=== PATIENT | female | born 1985 | race Caucasian/White ===

== ENCOUNTER 2022-10-29 07:49 | Emergency (ER) | payer MEDICAID ==
[~2022-10-29] VITALS: Ht 160 cm; Wt 62.6 kg
--- NOTE | 2022-10-29 08:05 | NUR ---
pain on urination, dysuria that started last night.
--- NOTE | 2022-10-29 08:18 | NUR ---
PLACED PATIENT ON BED ,CONNECT TO MONITOR,OFFERED BLANKET TO PATIENT
--- NOTE | 2022-10-29 08:23 | NUR ---
urine collected and sent to lab.
[2022-10-29 08:44] LABS: BILIRUBIN,URINE 2+ (NEGATIVE); COLOR,URINE AMBER (YELLOW); LEUKOCYTE ESTERASE ,URINE 2+ (NEGATIVE); NITRITE, URINE POSITIVE (NEGATIVE); PH,URINE 6.5 (5.0-8.0); PROTEIN,URINE 3+ mg/dl (NEGATIVE); UGLUCOSE TRACE mg/dL (NEGATIVE)
[2022-10-29 09:07] LABS: RBC,URINE TOO NUMEROUS TO COUN /HPF (0-2)
[2022-10-29 09:08] LABS: BACTERIA,URINE Moderate /HPF (None Seen); WBC,URINE 21-50 /HPF (0-3)
[2022-10-29 09:09] LABS: SQUAMOUS EPITHELIAL CELL,UR Many /HPF (None Seen)
--- NOTE | 2022-10-29 09:15 | NUR ---
DOCTOR VALENTIN AT BED SIDE.
[2022-10-29] MEDS ORDERED: NITR100C6 PO (09:28)
--- NOTE | 2022-10-29 09:44 | NUR ---
DOCTOR ADVISED DISCHARGE.PATIENT NEEDS PAIN MEDICATION .INFORMED TO ON DUTY DOCTOR.
[2022-10-29] MEDS ORDERED: IBUP-1955 PO (09:46)
[2022-10-29] MEDS ORDERED: PHEN-704 PO (09:46)
[2022-10-29] MEDS ORDERED: KETOROLAC TROMETHAMINE 15 MG/ML VIAL ONE (09:50)
--- NOTE | 2022-10-29 09:59 | NUR ---
Patient discharged to home in stable condition. Written and verbal after care instructions given. Patient verbalizes understanding of instruction.
[2022-10-29 10:00] VITALS: BP 106/68; TEMP 98.2
[2022-10-29] MEDS ORDERED: KETOROLAC TROMETHAMINE INJ 30 MG/ML VIAL IM ONE (10:00)
== END 2022-10-29 10:02 | disposition home or self-care (01) ==
LOC: ER 07:54
DX: N39.0 Urinary tract infection, site not specified (principal)
CPT/HCPCS: 99283; 96372; 87086; 81001; J1885